=== PATIENT | male | born 2000 | race Caucasian/White ===

== ENCOUNTER 2021-07-30 14:50 | Emergency (ER) | payer SELFPAY ==
[~2021-07-30] VITALS: Ht 182.9 cm; Wt 68.0 kg
[2021-07-30] MEDS ORDERED: IV NORMAL SALINE 500 ML BAG IV ONE (15:15)
[2021-07-30] MEDS ORDERED: MAGNESIUM SULFATE 2 GM in IV DEXTROSE 5% 100 ML IV ONE (15:15)
[2021-07-30] MEDS ORDERED: MAGNESIUM SULFATE/D5W 100 ML IV ONE (15:30)
[2021-07-30] MEDS ORDERED: MAGNESIUM SULFATE/D5W 200 ML ONE (15:32)
[2021-07-30] MEDS: MAGNESIUM SULFATE/D5W 100 ML IV SCH ×2 (15:33→16:33)
[2021-07-30 15:49] LABS: HEMATOCRIT 45.5 % (36.7-47.1); MEAN CORPUSCULAR HEMOGLOBIN 29.4 uug (23.8-33.4); MEAN CORPUSCULAR VOLUME 86.1 fL (73.0-96.2); PLATELET COUNT (AUTO) 195 K/uL (152-348)
[2021-07-30 16:04] LABS: BILIRUBIN,TOTAL 0.5 mg/dL (0.2-1.0); POTASSIUM 3.1 mmol/L (3.5-5.1)
--- NOTE | 2021-07-30 16:52 | NUR ---
"I feel so much better." per patient's verbalization. Patient denies any discomfort. He is pleasant, no hands/fingers stiffness or numbness expressed . Patient ambulated to bathroom 3x to void.
--- NOTE | 2021-07-30 17:37 | NUR ---
IV removed. Catheter intact and site benign. Pressure and 4x4 gauze applied to site. No bleeding noted. Patient discharged to home in stable condition with brisk steady gait. Written and verbal after care instructions given to patient and family . Patient and family verbalized understanding and compliance of instructions. Stressed follow up with primary doctor or return to ER for worsening s/s.
== END 2021-07-30 17:48 | disposition home or self-care (01) ==
LOC: ER 14:52
DX: E86.0 Dehydration (principal); E87.6 Hypokalemia; E83.51 Hypocalcemia
CPT/HCPCS: 36415; 80053; 82550; 83735; 85025; 96365; 99284; J3475; A4663; J7040; J7060